=== PATIENT | female | born 1990 | race African-American/Black ===

== ENCOUNTER 2016-10-04 16:58 | Emergency (ER) | payer OTHER ==
[~2016-10-04] VITALS: Ht 170.2 cm; Wt 102.0 kg
--- NOTE | ~2016-10-04 | CT2 ---
[facility] A Service of [facility] RADIOLOGY TEXT RESULTS PATIENT: ROOPA MCBRIDE LOCATION: [facility] : [birth year] UNIT #: [id number] AGE: [address]: Mejia Roberts MD SEX: F ORDER DR: [id number] [facility] [address] [place], [place] [address] [id number] MR#: [id number] Acc #: [id number] NAME: ROOPA MCBRIDE : 1990 SEX: F STUDY DATE/TIME: 10/04/2016 19:21 UNIT: [facility] ROOM: STUDY DESCRIPTION: CT Abd and Pelv W Cont Attending Physician: Mejia Roberts M.D. Ordering Physician: Yimi Rouse M.D. Primary Care Physician: Primary Care Physician No MEDICAL IMAGING REPORT This report is preliminary unless electronic signature is present EXAM CT scan of the abdomen and pelvis with contrast, 10/04/2016 HISTORY Lower abdominal pain and cramping with nausea and fever beginning 1 day ago. TECHNIQUE Spiral CT was performed through the abdomen and pelvis following intravenous contrast administration only as per clinician request. This CT exam was performed with one or more of the following radiation dose reduction techniques: automatic exposure control, adjustment of mA and/or kV according to patient size, and iterative reconstruction. FINDINGS ABDOMEN: The exam is limited by the lack of oral contrast. There is no prior exam for comparison. The liver, spleen, pancreas, gallbladder, biliary tree, adrenal glands and kidneys are normal. PELVIS FINDINGS: There is diffuse thickening of the wall of the ascending and proximal transverse colon with associated luminal narrowing and some minimal stranding is seen in the surrounding mesenteric fat, probably reflecting inflammatory or infectious colitis. No bowel obstruction or abscess is seen. Clinical correlation is recommended. No significant adenopathy is seen. Minimal free fluid is seen within the pelvis. There is a small periumbilical hernia containing only fat. Images of the lung bases are normal. IMPRESSION 1. Exam is limited by the lack of oral contrast. 2. Diffuse thickening of the wall of the ascending colon and proximal [facility] A Service of [facility] RADIOLOGY TEXT RESULTS PATIENT: ROOPA MCBRIDE LOCATION: [facility] : [birth year] UNIT #: [id number] AGE: [address]: Mejia Roberts MD SEX: F ORDER DR: transverse colon with some inflammatory stranding in the surrounding mesenteric fat probably reflecting inflammatory or infectious colitis. Clinical correlation is recommended. No bowel obstruction or abscess is seen. 3. Small periumbilical hernia containing only fat. Dictated by... Nakul Sheppard M.D. THIS IS AN ELECTRONICALLY VERIFIED REPORT Nakul Sheppard M.D. at 10/05/2016 2:07 PM STEWART/michael TD: 10/04/2016 22:26 JOB #: [id number] MEDICAL IMAGING REPORT Page 1 of 1 COPY
[~2016-10-04 16:58] MED LIST: AZITHROMYCIN250 MG PO; FLONASE16 GM; VOLTAREN75 MG PO
[2016-10-04 18:14] LABS: BASOPHIL% 0.2 % (0-2.5); HEMATOCRIT 36.5 % (35.0-45.0); HEMOGLOBIN 11.9 gm/dL (12.0-16.0); LYMPHOCYTE# 0.9 X10e3 (1.0-3.5); LYMPHOCYTE% 7.9 % (17.0-45.0); MEAN CELL VOLUME 80.9 FL (83-96); MEAN CORPUSCULAR HEMOGLOBIN 26.3 PG (28-34); MEAN CORPUSCULAR HGB CONC 32.5 g/dL (30-36); MEAN PLATELET VOLUME 8.2 FL (6.5-11.5); MONOCYTE# 0.4 X10e3 (0-1.0); MONOCYTE% 3.5 % (3.0-12.0); NEUTROPHIL% 88.4 % (40-75); PLATELET COUNT 267 X10e3 (140-420); RED BLOOD COUNT 4.52 X10e (3.90-5.30); RED CELL DISTRIBUTION WIDTH 13.4 % (11.0-15.5); WHITE BLOOD COUNT 11.4 X10e3 (4.0-10.5)
[2016-10-04 18:15] LABS: DIFF IND NO
[2016-10-04 18:40] LABS: BILIRUBIN, DIRECT 0.1 mg/dL (0.0-0.2); BILIRUBIN,INDIRECT 0.6 mg/dL (0.0-0.9); BILIRUBIN,TOTAL 0.7 mg/dL (0.2-2.0); CALCIUM SERUM 9.4 mg/dL (8.4-10.2); CREATININE SERUM 0.9 mg/dL (0.6-1.4); GLOM FILT RATE Estimated 104.5 mL/min (>60); PROTEIN TOTAL SERUM 8.8 g/dL (6.0-8.3)
[2016-10-04 18:45] LABS: URINE SOURCE CLEAN CATCH
[2016-10-04 18:51] LABS: URINE APPEARANCE CLEAR; URINE BILIRUBIN NEG (NEG); URINE BLOOD NEG (NEG); URINE COLOR YELLOW; URINE GLUCOSE NEG (NEG); URINE KETONE NEG (NEG); URINE LEUKOCYTE ESTERASE NEG (NEG); URINE NITRATE NEG (NEG); URINE PH 5.5 (5-8); URINE PROTEIN 1+ (NEG); URINE SPECIFIC GRAVITY 1.026 (1.003-1.035); URINE UROBILINOGEN 0.2 MG/DL (NEG)
[2016-10-04 18:55] LABS: URINE BACTERIA AUWI NEG (NEGATIVE); URINE SQUAMOUS EPITHELIAL CELL OCC /[HPF]; UWBCS1 AUWI 0-2 (0-5)
[2016-10-04 18:57] LABS: CULTURE INDICATED? NO
[2016-10-07 10:55] LABS: CHLAMYDIA TRACH Not Detected (Not Detected); N GONOR Not Detected (Not Detected)
== END 2016-10-04 21:29 | disposition home or self-care (01) ==
LOC: CED 16:58
PROVIDERS: Emergency Medicine
DX: K52.9 Noninfective gastroenteritis and colitis, unspecified (principal); R50.9 Fever, unspecified; R51 Headache
CPT/HCPCS: 36415; 74177; 80048; 80076; 81003; 82150; 83605; 83690; 84703; 85025; 87040; 87491; 87591; 87808; 87905; 96361; 96374; 99284; J2270; Q9967